=== PATIENT | female | born 1935 | race Caucasian/White ===

== ENCOUNTER 2019-06-01 10:52 | Emergency (ER) | payer SELFPAY ==
[~2019-06-01] VITALS: Ht 157.5 cm; Wt 65.9 kg
[2019-06-01 10:56] VITALS: BP 153/83; PULSE 69; RESP 23; Ht 157.5 cm; Wt 65.9 kg
[2019-06-01] MEDS ORDERED: ACET325T33 PO (11:18)
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
[2019-06-01] MEDS ORDERED: ACETAMINOPHEN 325 MG TAB PO ONE (11:30)
== END 2019-06-01 11:20 | disposition home or self-care (01) ==
LOC: FTE 10:52
DX: M54.5 Low back pain (principal); I10 Essential (primary) hypertension; E11.9 Type 2 diabetes mellitus without complications
CPT/HCPCS: 72100